=== PATIENT | female | born 1990 | race Caucasian/White ===

== ENCOUNTER 2018-10-17 07:41 | Emergency (ER) | payer SELFPAY | END 2018-10-17 08:11 | disposition left against medical advice (07) | LOC: EMS 07:41 | DX: R06.02 Shortness of breath (principal); Z53.21 Procedure and treatment not carried out due to patient leaving prior to being seen by health care provider ==

== ENCOUNTER 2020-11-11 19:15 | Emergency (ER) | payer OTHER ==
[~2020-11-11] VITALS: Ht 172.7 cm; Wt 86.4 kg
[2020-11-12 00:16] VITALS: BP 139/64
== END 2020-11-12 00:18 | disposition home or self-care (01) ==
LOC: EMS 19:15
DX: L02.212 Cutaneous abscess of back [any part, except buttock and flank] (principal); J86.9 Pyothorax without fistula; F17.210 Nicotine dependence, cigarettes, uncomplicated
CPT/HCPCS: 99283; Z7502